=== PATIENT | male | born 1990 | race Two or more races ===

== ENCOUNTER 2017-06-19 02:58 | Emergency (ER) | payer SELFPAY ==
[~2017-06-19] VITALS: Ht 177.8 cm; Wt 59.9 kg
[2017-06-19] MEDS ORDERED: NKM (03:16)
[2017-06-19] MEDS ORDERED: Morphine Sulfate 4mg/ml Inj IVP ONE (03:30)
[2017-06-19] MEDS ORDERED: Tubing IV Cassette IV ONE (03:33)
[2017-06-19 03:37] LABS: BASOPHILS % (AUTO) 0.7 % (0.0-2.0); EOSINOPHILS % (AUTO) 1.6 % (0.0-3.0); HEMATOCRIT 48.7 % (42.0-52.0); HEMOGLOBIN 16.9 G/DL (14.2-18.0); LYMPHOCYTES % (AUTO) 16.3 % (20.0-45.0); MEAN CORPUSCULAR VOLUME 88 FL (80-99); MONOCYTES % (AUTO) 6.2 % (1.0-10.0); NEUTROPHILS % (AUTO) 75.3 % (45.0-75.0); PLATELET COUNT 219 K/UL (150-450); RED BLOOD COUNT 5.51 M/UL (4.70-6.10); WHITE BLOOD COUNT 14.5 K/UL (4.8-10.8)
[2017-06-19 03:38] LABS: BILIRUBIN, URINE NEGATIVE (NEGATIVE); GLUCOSE, URINE (UA) NEGATIVE (NEGATIVE); KETONES,URINE 1+ (NEGATIVE); LEUKOCYTE ESTERASE ,URINE NEGATIVE (NEGATIVE); NITRITE,URINE NEGATIVE (NEGATIVE); PH,URINE 5 (4.5-8.0); PROTEIN,URINE NEGATIVE (NEGATIVE); UROBILINOGEN,URINE NORMAL MG/DL (0.0-1.0)
[2017-06-19 03:46] LABS: ANION GAP 11 mmol/L (5-15); APPEARANCE,URINE CLEAR; BLOOD UREA NITROGEN 25 mg/dL (7-18); CALCIUM 9.1 MG/DL (8.5-10.1); CARBON DIOXIDE 24 MMOL/L (21-32); CHLORIDE 103 MMOL/L (98-107); COLOR,URINE YELLOW; CREATININE 1.2 MG/DL (0.55-1.30); POTASSIUM 2.8 MMOL/L (3.5-5.1); SODIUM 138 MMOL/L (136-145)
[2017-06-19 03:50] LABS: ALANINE AMINOTRANSFERASE 29 U/L (12-78); ALBUMIN 4.3 G/DL (3.4-5.0); ALBUMIN/GLOBULIN RATIO 1.2 (1.0-2.7); ALKALINE PHOSPHATASE 60 U/L (46-116); ASPARTATE AMINO TRANSFERASE 19 U/L (15-37); BILIRUBIN,TOTAL 0.7 MG/DL (0.2-1.0)
[2017-06-19] MEDS ORDERED: Ketorolac 30mg Inj IV ONE (05:00)
[2017-06-19] MEDS ORDERED: IBUPROFEN600 MG ORAL (05:08)
[2017-06-19] MEDS ORDERED: TAMSULOSIN HCL0.4 MG ORAL (05:08)
--- NOTE | 2017-06-19 05:08 | Emergency Room Report ---
History of Present Illness General Chief Complaint: Abdominal Pain Source: Patient Present Illness HPI 27-year-old male with no sig pmhx p/w abdominal pain 3 hours. Patient states pain started gradually, localized to right lower quadrant, non radiating, burning in nature, intermittent. No relieving or exacerbating factors. Pt reports n/v, 3 episodes of nbnb vomiting, no diarrhea Denies fever, chills. No hx of abdominal surgeries. No hx of endoscopies/colonoscopies. Allergies: Coded Allergies: No Known Allergies (Unverified , 06/19/17) Patient History Past Medical History: see triage record Past Surgical History: none Pertinent Family History: none Reviewed Nursing Documentation: PMH: Agreed, PSxH: Agreed Nursing Documentation-PMH Hx Gastrointestinal Problems: Yes - ULCER Review of Systems All Other Systems: negative except mentioned in HPI Physical Exam Vital Signs Date Time Temp Pulse Resp B/P (MAP) Pulse Ox O2 Delivery O2 Flow Rate FiO2 06/19/17 03:12 96.4 102 18 134/89 98 Room Air Sp02 EP Interpretation: reviewed, normal General Appearance: alert, GCS 15, non-toxic, mild distress Head: normocephalic, atraumatic Eyes: bilateral eye normal inspection, bilateral eye PERRL, bilateral eye EOMI ENT: normal ENT inspection, normal pharynx, normal voice, moist mucus membranes Neck: normal inspection, full range of motion, supple Respiratory: normal inspection, lungs clear, normal breath sounds, no respiratory distress, no retraction, no wheezing, speaking full sentences, chest symmetrical Cardiovascular #1: normal inspection, regular rate, rhythm, normal capillary refill Cardiovascular #2: 2+ radial (R), 2+ radial (L) Gastrointestinal: other - Very mild right lower quadrant tenderness, no guarding no rebound, no CVA tenderness bilaterally, nontender elsewhere Musculoskeletal: normal inspection, back normal, normal range of motion, non- tender Neurologic: normal inspection, alert, oriented x3, responsive, motor strength/ tone normal, sensory intact, normal gait, speech normal Psychiatric: normal inspection, judgement/insight normal, memory normal Skin: normal inspection, normal color, no rash, warm/dry, well hydrated, normal turgor Medical Decision Making Diagnostic Impression: Primary Impression: Nephrolithiasis ER Course 27-year-old male with abdominal pain Differential Diagnosis: Gastritis, gastroenteritis, cholecystitis, appendicitis, diverticulitis, kidney stone UTI/pyelo Plan: Basic labs, ua, ekg pain control, IVF CT abdopelvis ER course: Patient has remained stable during ED stay. Pain improved. Repeat abdominal exam is nontender. Tolerating PO Disposition: Patient is to be discharged to home. Prescriptions given are Flomax, Motrin Patient is instructed to follow up with urology within 3 days. Strict return precautions discussed with patient such as fever, chills, worsening/severe abdominal pain, nausea, vomiting, black or bloody stools, which may indicate severe illness. Patient verbalizes understanding and agrees with plan. Please note that this Emergency Department Report was dictated using [employer] examiner technology software, occasionally this can lead to erroneous entry secondary to interpretation by the dictation equipment Laboratory Tests Test 06/19/17 03:30 White Blood Count 14.5 K/UL (4.8-10.8) H Red Blood Count 5.51 M/UL (4.70-6.10) Hemoglobin 16.9 G/DL (14.2-18.0) Hematocrit 48.7 % (42.0-52.0) Mean Corpuscular Volume 88 FL (80-99) Mean Corpuscular Hemoglobin 30.7 PG (27.0-31.0) Mean Corpuscular Hemoglobin Concent 34.7 G/DL (32.0-36.0) Red Cell Distribution Width 11.0 % (11.6-14.8) L Platelet Count 219 K/UL (150-450) Mean Platelet Volume 7.5 FL (6.5-10.1) Neutrophils (%) (Auto) 75.3 % (45.0-75.0) H Lymphocytes (%) (Auto) 16.3 % (20.0-45.0) L Monocytes (%) (Auto) 6.2 % (1.0-10.0) Eosinophils (%) (Auto) 1.6 % (0.0-3.0) Basophils (%) (Auto) 0.7 % (0.0-2.0) Urine Color Yellow Urine Appearance Clear Urine pH 5 (4.5-8.0) Urine Specific [place] 1.025 (1.005-1.035) Urine Protein Negative (NEGATIVE) Urine Glucose (UA) Negative (NEGATIVE) Urine Ketones 1+ (NEGATIVE) H Urine Occult Blood Negative (NEGATIVE) Urine Nitrite Negative (NEGATIVE) Urine Bilirubin Negative (NEGATIVE) Urine Urobilinogen Normal MG/DL (0.0-1.0) Urine Leukocyte Esterase Negative (NEGATIVE) Sodium Level 138 MMOL/L (136-145) Potassium Level 2.8 MMOL/L (3.5-5.1) L Chloride Level 103 MMOL/L (98-107) Carbon Dioxide Level 24 MMOL/L (21-32) Anion Gap 11 mmol/L (5-15) Blood Urea Nitrogen 25 mg/dL (7-18) H Creatinine 1.2 MG/DL (0.55-1.30) Estimate Glomerular Filtration Rate > 60 mL/min (>60) Glucose Level 151 MG/DL (74-106) H Calcium Level 9.1 MG/DL (8.5-10.1) Total Bilirubin 0.7 MG/DL (0.2-1.0) Aspartate Amino Transferase (AST) 19 U/L (15-37) Alanine Aminotransferase (ALT) 29 U/L (12-78) Alkaline Phosphatase 60 U/L (46-116) Total Protein 7.9 G/DL (6.4-8.2) Albumin 4.3 G/DL (3.4-5.0) Globulin 3.6 g/dL Albumin/Globulin Ratio 1.2 (1.0-2.7) Lipase 102 U/L (73-393) Urine Opiates Screen Negative (NEGATIVE) Urine Barbiturates Screen Negative (NEGATIVE) Phencyclidine (PCP) Screen Negative (NEGATIVE) Urine Amphetamines Screen Negative (NEGATIVE) Urine Benzodiazepines Screen Negative (NEGATIVE) Urine Cocaine Screen Negative (NEGATIVE) Urine Marijuana (THC) Screen Positive (NEGATIVE) H CT/MRI/US Diagnostic Results CT/MRI/US Diagnostic Results : Imaging Test Ordered: CT abdo pelvis Impression CT ABDOMEN & PELVIS With Contrast: Bladder side right UVJ stone measuring 2-3 mm in size. Mild distention of the right renal collecting system and ureter along with asymmetric infiltration around right kidney and ureter along with hypoenhancement of the right kidney compared to the left. No bowel obstruction. Much of bowel is incompletely distended limiting evaluation for wall thickening. There are a few mildly distended small bowel segments which may represent ileus and/or stasis. The appendix is not visualized. Last Vital Signs Date Time Temp Pulse Resp B/P (MAP) Pulse Ox O2 Delivery O2 Flow Rate FiO2 06/19/17 03:12 96.4 102 18 134/89 98 Room Air Disposition: HOME, SELF-CARE Condition: Improved Scripts Ibuprofen* (MOTRIN*) 600 Mg Tablet 600 MG ORAL Q8H Y for For Pain, #30 TAB 0 Refills Prov: Kate Molina M.D. 06/19/17 Tamsulosin Hcl (TAMSULOSIN HCL*) 0.4 Mg Cap.er.24h 0.4 MG ORAL BEDTIME for 7 Days, #7 CAP 0 Refills Prov: Kate Molina M.D. 06/19/17 Referrals: NOT CHOSEN IPA/,REFERRING (PCP) Patient Instructions: Kidney Stones, [id number] Kate Molina M.D. Jun 19, 2017 05:08
[2017-06-19 05:10] VITALS: BP 117/58
[2017-06-19 05:57] VITALS: BP 117/58
--- NOTE | 2017-06-19 16:22 | Diagnostic Imaging Report ---
Indication: Lower abdominal pain for 3 hours Technique: CT of the abdomen and pelvis utilizing automated exposure control with intravenous contrast. Venous scanning performed. CT dose: Total DLP 590 mGycm; CTDI vol 12.1 mGy Comparison: None Findings: Image lower chest unremarkable. Liver, gallbladder, spleen, adrenal glands and pancreas unremarkable in appearance. There is delayed nephrogram on the right and mild right perinephric stranding. There is mild right-sided hydroureteronephrosis to the level of a 2 to 3 mm stone at the right ureterovesicular junction (UVJ). Bladder is decompressed, limiting its evaluation. Prostate is not enlarged. No evidence of free intraperitoneal air or fluid. There is no bowel obstruction. No focal or diffuse abnormal bowel wall thickening is appreciated. The appendix is not definitively visualized but there is no focal inflammatory stranding in the right lower quadrant to suggest acute appendicitis. The abdominal aorta is normal in caliber. No pathologically enlarged lymphadenopathy is identified. No acute osseous abnormality is seen. IMPRESSION: 2-3 mm right ureterovesicular junction stone resulting in mild right-sided hydroureteronephrosis, delayed right nephrogram and right-sided perinephric stranding. This corresponds with the statrad preliminary report. The CT scanner at [facility] is accredited by the [employer] and the scans are performed using protocols designed to limit radiation exposure to as low as reasonably achievable to attain images of sufficient resolution adequate for diagnostic evaluation.
== END 2017-06-19 05:59 | disposition home or self-care (01) ==
LOC: EMR 03:25
DX: N13.2 Hydronephrosis with renal and ureteral calculous obstruction (principal)
CPT/HCPCS: 36415; 74177; 80053; 80307; 81003; 83690; 85025; 96361; 96374; 96375; 99284; J1885; J2270; J2405; Q9967; J8499